=== PATIENT | male | born 1985 | race Caucasian/White ===

== ENCOUNTER 2022-10-25 13:41 | Emergency (ER) | payer MEDICARE, MEDICAID, SELFPAY ==
[2022-10-25 13:44] VITALS: BP 150/97; PULSE 112; RESP 18; TEMP 36.9; O2SAT 97; BMI 34.3
--- NOTE | 2022-10-25 13:56 | ED.GENADULT ---
HPI - General Adult General Chief complaint: Dental/Oral/Mouth Injury/Pain Stated complaint: Tooth pain Time Seen by Provider: 10/25/22 13:50 Source: patient Mode of arrival: ambulatory Limitations: no limitations History of Present Illness HPI narrative: 37-year-old male coming in today complaining of dental pain. Patient states that he has a history of dental problems. He noticed some increasing pain today both on the top and bottom teeth on the left side. Denies any systemic symptoms. Related Data Home Medications Medication Instructions Recorded Confirmed lorazepam 0.5 mg tablet (Ativan) 0.5 mg PO Q12H PRN 10/25/22 10/25/22 metformin 500 mg tablet 2,000 mg PO DAILY 10/25/22 10/25/22 Previous Rx's Medication Instructions Recorded amoxicillin 875 mg-potassium 1 tab PO BID #14 tabs 10/25/22 clavulanate 125 mg tablet Allergies Allergy/AdvReac Type Severity Reaction Status Date / Time No Known Drug Allergies Allergy Verified 10/25/22 13:48 Review of Systems Status of ROS: Reports: 10 or more systems reviewed and unremarkable except as noted in History and below Exam Narrative: Exam Narrative: Overweight, well-developed patient in no acute distress. Alert and oriented. Answers questions appropriately. Mood is slightly angry. Thoughts are goal oriented and rational. No tangential or magical thinking noted. Patient speaks in full sentences without needing to catch his breath. HEENT: Normocephalic atraumatic. Pupils are equally round reactive to light. Extraocular muscles are intact. Conjunctivae are moist without any icterus noted. Moist mucous membranes. Posterior pharynx is normal. Neck is soft without any lymphadenopathy or thyromegaly. No masses are appreciated. Patient has extraordinarily poor dentition. Teeth are rotting in multiple places, he has a very thick layer of plaque and debris covering most of his teeth, the gums are bright red and swollen across the entire top and bottom. There are no areas of fluctuance, I do not appreciate any possible abscesses. Very strong odor coming from his mouth. Skin: Well perfused without any obvious rashes. Const: Vital Signs, click to edit/add: Vital Signs - 24 hr 10/25/22 13:44 Temperature 98.5 F Pulse Rate [Right Pulse Oximeter] 112 H Respiratory Rate 18 Blood Pressure [Ri ght Upper Arm] 150/97 H Pulse Oximetry 97 Oxygen Delivery Me thod Room Air Course Course Hospital Course: Did ask the patient if he did any drugs and patient became extremely angry. I was able to discuss with him that I was asking so that I can better treat him and that I was not making any judgments, this did seem to calm him down. Vital Signs Vital signs: Initial Vital Signs Temperature 98.5 F 10/25/22 13:44 Temperature Source Temporal Artery Scan 10/25/22 13:44 Pulse Rate 112 H 10/25/22 13:44 Respiratory Rate 18 10/25/22 13:44 Blood Pressure 150/97 H 10/25/22 13:44 Blood Pressure Mean 114 10/25/22 13:44 Blood Pressure Position Sitting 10/25/22 13:44 Pulse Oximetry 97 10/25/22 13:44 Oxygen Delivery Method Room Air 10/25/22 13:44 Vital Signs Temperature 98.5 F 10/25/22 13:44 Pulse Rate 112 H 10/25/22 13:44 Respiratory Rate 18 10/25/22 13:44 Blood Pressure 150/97 H 10/25/22 13:44 Pulse Oximetry 97 10/25/22 13:44 Oxygen Delivery Method Room Air 10/25/22 13:44 Temperature 98.5 F 10/25/22 13:44 Pulse Rate 112 H 10/25/22 13:44 Respiratory Rate 18 10/25/22 13:44 Blood Pressure 150/97 H 10/25/22 13:44 Pulse Oximetry 97 10/25/22 13:44 Oxygen Delivery Method Room Air 10/25/22 13:44 Medical Decision Making MDM Narrative Medical decision making narrative: Poor dentition with probable gingival infection an obvious inflammation. Will treat with Augmentin and patient is encouraged to follow up with a dentist. Discharge Plan Discharge Clinical Impression: Disease of gingiva due to infection Patient Disposition: Home, Self-Care Condition: Stable Additional Instructions: Take all antibiotics as prescribed. Do recommend you follow-up with a dentist as soon as possible. Prescriptions: New amoxicillin-pot clavulanate 875-125 mg tablet 1 tab PO BID Qty: 14 0RF No Action lorazepam [Ativan] 0.5 mg tablet 0.5 mg PO Q12H PRN metformin 500 mg tablet 2,000 mg PO DAILY Stand Alone [facility]: [facility]
== END 2022-10-25 14:18 | disposition home or self-care (01) ==
LOC: ED 14:07
PROVIDERS: Emergency Provider Family Medicine
DX: K08.89 Other specified disorders of teeth and supporting structures (principal); K06.9 Disorder of gingiva and edentulous alveolar ridge, unspecified
CPT/HCPCS: 99283

== ENCOUNTER 2023-01-26 08:09 | Emergency (ER) | payer MEDICARE, MEDICAID, SELFPAY ==
[2023-01-26 08:15] VITALS: BP 158/118; PULSE 111; RESP 20; TEMP 36.7; O2SAT 98; BMI 21.8
--- NOTE | 2023-01-26 08:49 | ED_ITS ---
HPI - Abdominal Pain General Time Seen by Provider: 08:50 Date Seen: 01/26/23 Chief Complaint: Constipation Stated Complaint: constipated Time Seen by Provider: 01/26/23 08:28 Source: patient Mode of arrival: ambulatory Limitations: no limitations History of Present Illness HPI narrative: Patient is a 37-year-old male for history of anxiety and diabetes presenting to emergency department for abdominal pain and constipation. Patient states symptoms started back in August and he had imaging done that time was told he has constipation. He was taking his laxatives and safety of occasional large bowel movement. He states symptoms were starting to improve he stopped taking them. About 1 month ago he states he started having symptoms of constipation abdominal pain again. States he start taking MiraLax and another medication post unsure if he could take them together so stopped taking the MiraLax. States his abdominal pain has been worsened and is mostly in the lower abdominal region. Patient states he has only had small bowel movements over the past month. Patient states the pain is making it difficult to eat. He is also complaining of intermittent testicular discomfort. He states it feels like a pressure sensation appears his testicles. There is no tenderness to the testicles he states. He will also have discomfort with ejaculation. Related Data Home Medications Medication Instructions Recorded Confirmed lorazepam 0.5 mg tablet (Ativan) 0.5 mg PO Q12H PRN 10/25/22 01/26/23 metformin 500 mg tablet 2,000 mg PO DAILY 10/25/22 01/26/23 glipizide 10 mg tablet, extended 20 mg PO DAILY 01/26/23 01/26/23 release 24 hr risperidone 0.5 mg tablet mg PO 01/26/23 Previous Rx's Medication Instructions Recorded docusate sodium 100 mg capsule 100 mg PO BID #20 caps 01/26/23 (Colace) polyethylene glycol 3350 17 17 g PO BID #119 grams 01/26/23 gram/dose oral powder (Miralax) sennosides 8.6 mg capsule (senna) 17.2 mg (2 x 8.6 mg) PO BID #40 01/26/23 caps Allergies Allergy/AdvReac Type Severity Reaction Status Date / Time cats Allergy Mild Uncoded 12/31/22 11:22 PFSH PFSH Social History Smoking Status: Former smoker Second hand tobacco smoke exposure: No How often do you have a drink containing alcohol: never AUDIT-C Alcohol total score: 0 Non-prescribed substance use: marijuana (any form) service: No Exam Narrative: Exam Narrative: Const: Well-nourished, Well-developed, in moderate distress Eyes: PERRL, no conjunctival injection, and symmetrical lids ENMT: Atraumatic external nose and ears. Moist mucous membranes. Neck: Symmetric, trachea midline, No thyromegaly. CVS: RRR, No murmurs or gallops. Peripheral pulses 2+ and equal in all extremities RESP: Unlabored respiratory effort. Clear to auscultation bilaterally. GI: Diffusely mildly tender abdomen, Nondistended, No rebound or guarding. MSK:Extremities w/o deformity, Normal Active ROM Skin: Warm, Dry. No rashes or lesions. Neuro: Normal Muscle tone, No focal neurological deficits. Psych: Awake, Alert, & Oriented x3. Anxious appearing. Const: Vital Signs, click to edit/add: Vital Signs - 24 hr 01/26/23 08:15 01/26/23 11:06 Temperature 98.1 F Pulse Rate [Pulse Oximeter] 111 H 86 Respiratory Rate 20 16 Blood Pressure [Ri ght Upper Arm] 158/118 H 130/80 Pulse Oximetry 98 96 Oxygen Delivery Me thod Room Air Course Vital Signs Vital signs: Initial Vital Signs Temperature 98.1 F 01/26/23 08:15 Temperature Source Temporal Artery Scan 01/26/23 08:15 Pulse Rate 111 H 01/26/23 08:15 Respiratory Rate 20 01/26/23 08:15 Blood Pressure 158/118 H 01/26/23 08:15 Blood Pressure Mean 131 H 01/26/23 08:15 Blood Pressure Position Sitting 01/26/23 08:15 Pulse Oximetry 98 01/26/23 08:15 Oxygen Delivery Method Room Air 01/26/23 08:15 Vital Signs Temperature 98.1 F 01/26/23 08:15 Pulse Rate 111 H 01/26/23 08:15 Respiratory Rate 20 01/26/23 08:15 Blood Pressure 158/118 H 01/26/23 08:15 Pulse Oximetry 98 01/26/23 08:15 Oxygen Delivery Method Room Air 01/26/23 08:15 Temperature 98.1 F 01/26/23 08:15 Pulse Rate 86 01/26/23 11:06 Respiratory Rate 16 01/26/23 11:06 Blood Pressure 130/80 01/26/23 11:06 Pulse Oximetry 96 01/26/23 11:06 Oxygen Delivery Method Room Air 01/26/23 08:15 MDM - Abdominal Pain MDM Narrative Medical decision making narrative: Patient is a 37-year-old male with history of diabetes presenting to emergency department for abdominal pain and constipation. He has been having issues with constipation for several months now. He has been intermittently using stool softeners. Says he has only had a small bowel movement 3 days ago otherwise states he only has intermittent small bowel movements over the past month. States this caused him severe pain. Patient states he has been to several doctors and they will dismiss him and did not do any workup for him. Somewhat pains and would do CT scan of the abdomen and pelvis with IV contrast, CBC, CMP, urinalysis, lipase. I asked the patient what is in the medication for pain and he responded he did not know if he wants anything. Differential include small- bowel obstruction, constipation, appendicitis, diverticulitis, urinary tract infection. Patient's lab work returns showing no concerning abnormalities. His blood sugar is elevated and appears poorly controlled. Urinalysis shows no signs of UTI. Patient's CT scan showed signs of possible acute cystitis. mL urinalysis shows no signs of UTI in the setting not treat for it. CT also showed mild stool impaction with moderate stool burden. I was able to do a rectal disimpaction. During this the patient was unable lay on his right side because the IV in his hand hurts too much. Was unable to move any of the stool but was able to break it up thoroughly. We then gave the patient a enema. Patient was able have a bowel movement. The patient describes it as a small bowel movement but I would describe it is a large bowel movement. Part of his issues with constipation could be 2 to his poor diabetes management causing some gastric ileus. There is no signs of bowel obstruction on the CT scan. After his bowel movement I did give the patient a thorough bowel regimen. Informed to take the regiment as directed and follow-up with primary care provider. He was discharged home. Medical Records Attestation: I reviewed the patient's medical records. Lab Data Attestation: I reviewed the patient's lab results. Labs: Lab Results 01/26/23 01/26/23 Range/Units 09:10 11:30 WBC 11.40 H (4.50-11.00) K/uL RBC 6.10 H (4.30-5.90) m/uL Hgb 17.0 (13.5-17.5) gm/dL Hct 48.2 (37.0-53.0) % MCV 79 L (80-100) fL MCH 28 (26-34) pg MCHC 35 (32-36) gm/dL RDW Coeff of [place] 12.7 (11.5-15.5) % Plt Count 306 (140-440) K/uL Neut % (Auto) 58.9 (42.0-72.0) % Lymph % (Auto) 30.9 (20-44) % [place] % (Auto) 7.4 (0.0-11.0) % Eos % (Auto) 2.0 (0.0-7.0) % Baso % (Auto) 0.4 (0.0-3.0) % Neut # (Auto) 6.70 (1.7-7.0) K/uL Lymph # (Auto) 3.50 H (0.90-2.90) K/uL [place] # (Auto) 0.80 (0.00-0.90) K/UL Eos # (Auto) 0.20 (0.00-0.50) K/uL Baso # (Auto) 0.00 (0.00-0.30) K/uL Abs Immat Gran (auto) 0.00 (0.00-0.30) K/uL Imm/Tot Granulo (auto) 0.4 % Sodium 135 (135-149) mmol/L Potassium 4.0 (3.6-5.1) mmol/L Chloride 101 (96-114) mmol/L Carbon Dioxide 22 (20-32) mmol/L BUN 18 (5-24) mg/dL Creatinine 0.8 (0.5-1.5) mg/dL Estimated Creat Clear 136.55 Estimated GFR 116 ml/min Glucose 258 H (60-115) mg/dL Calcium 9.3 (8.4-10.6) mg/dL Total Bilirubin 0.7 (0.1-1.5) mg/dL AST 21 (12-35) U/L ALT 38 (4-50) U/L Alkaline Phosphatase 114 (40-150) U/L Total Protein 8.0 (6.0-8.3) g/dL Albumin 4.6 (3.3-5.0) g/dL Lipase 395 H (23-300) U/L Urine Color Yellow (Yellow) Urine Appearance Clear (Clear) Urine pH 5.0 (5.0-8.5) Ur Specific [place] <= 1.005 (1.000-1.030) Urine Protein Negative (Negative) Urine Glucose (UA) Trace A (Negative) Urine Ketones Negative (Negative) Urine Blood Negative (Negative) Urine Nitrite Negative (Negative) Urine Bilirubin Negative (Negative) Urine Urobilinogen 0.2 (0.2-1.0) Ur Leukocyte Esterase Negative (Negative) Urine RBC 0-2 (0-2) Urine WBC 0-2 (0-5) Ur Squamous Epith Cells None (None-Few) Urine Bacteria None (None) Discharge Plan Discharge Clinical Impression: Constipation Qualifiers: Constipation type: unspecified constipation type Qualified Code(s): K59.00 - Constipation, unspecified Patient Disposition: Home, Self-Care Condition: Stable Instructions: Constipation (DC) Additional Instructions: Follow-up with the primary care provider. Take Tylenol and ibuprofen for pain. Take all of your constipation medications as directed. Prescriptions: New docusate sodium [Colace] 100 mg capsule 100 mg PO BID Qty: 20 0RF senna 8.6 mg capsule 17.2 mg PO BID Qty: 40 0RF polyethylene glycol 3350 [Miralax] 17 gram/dose powder 17 g PO BID Qty: 119 0RF No Action lorazepam [Ativan] 0.5 mg tablet 0.5 mg PO Q12H PRN metformin 500 mg tablet 2,000 mg PO DAILY glipizide 10 mg tablet extended release 24hr 20 mg PO DAILY risperidone 0.5 mg tablet PO Follow Up/Referrals: Provider,Not a Local [Primary Care Provider] - Stand Alone [facility]: [facility]
--- NOTE | 2023-01-26 08:49 | CRLHL7_ITS ---
For Patients: As a result of the Century Cures Act, medical imaging exams and procedure reports are released immediately into your electronic medical record. You may view this report before your referring provider. If you have questions, please contact your health care provider. Indication: Abdominal pain, radiating to low back pain for 6 months Technique: Volumetric multidetector CT images of the abdomen and pelvis were obtained after the administration of intravenous contrast. 132 cc Isovue 370 low osmolar intravenous contrast Comparison: None available. Findings: The lung bases are clear. The liver is enlarged with marked hepatomegaly and hepatic steatosis. The portal vein is patent. The gallbladder is unremarkable without evidence of radiopaque calculus. There is no significant common biliary ductal dilatation or abrupt cut off. There are calcified granulomas within the spleen. Otherwise the spleen is normal in attenuation. There is mild thickening of the gastric antrum and gastric rugal folds. The pancreas is normal in enhancement without significant atrophy. The adrenal glands are unremarkable. The kidneys demonstrate preserved corticomedullary differentiation without evidence of obstructive uropathy. There is moderate to severe stool seen within the rectal vault consistent with likely fecal impaction. There is moderate stool seen within the proximal colon. There is no significant pericolonic inflammatory change. The small bowel is unremarkable. The appendix is unremarkable. There is no significant mesenteric, retroperitoneal, or pelvic sidewall lymph nodes. The aorta is nonaneurysmal. There is no significant atherosclerotic disease appreciated. There is demonstration of a markedly thickened bladder which may represent bladder nondistention versus sequela of cystitis change. There is no free fluid or free air. The anterior abdominal wall is intact without significant hernias. The lumbar vertebral body heights are grossly maintained with minimal endplate Schmorl`s defects. There is no significant spondylolisthesis or displaced fracture. Impression: Demonstration of a markedly thickened bladder which may represent sequela of nondistention versus cystitis change. Moderate stool seen within the rectal vault likely representing mild fecal impaction. Otherwise moderate stool seen within the proximal colon with otherwise no evidence of colonic inflammatory change. Please note that all CT scans at this facility use dose modulation, iterative reconstruction, and/or weight-based dosing when appropriate to reduce radiation dose to as low as reasonably achievable. Dictated by Art Skaggs MD @ 01/26/2023 10:41:20 AM (Electronically Signed)
[2023-01-26 09:31] LABS: Basophils Percent Auto 0.4 % (0.0-3.0); Hematocrit 48.2 % (37.0-53.0); Immature Granulocytes Pct Auto 0.4 %; Lymphocytes Percent Auto 30.9 % (20-44); Mean Corpuscular HGB Conc 35 gm/dL (32-36); Mean Corpuscular Hemoglobin 28 pg (26-34); Mean Corpuscular Volume 79 fL (80-100); Monocytes Percent Auto 7.4 % (0.0-11.0); Neutrophils Percent Auto 58.9 % (42.0-72.0); Platelet Count* 306 K/uL (140-440); RDW Coefficient of Variation % 12.7 % (11.5-15.5)
[2023-01-26 09:42] LABS: Chloride* 101 mmol/L (96-114)
[2023-01-26 09:43] LABS: Albumin* 4.6 g/dL (3.3-5.0); Sodium* 135 mmol/L (135-149)
[2023-01-26 09:45] LABS: Bilirubin Total* 0.7 mg/dL (0.1-1.5); Creatinine* 0.8 mg/dL (0.5-1.5); Est. Creatinine Clearance* 136.55; Estimated Glomerular Filt Rate 116 ml/min
[2023-01-26 09:46] LABS: Alanine Aminotransferase* 38 U/L (4-50); Alkaline Phosphatase* 114 U/L (40-150); Aspartate Amino Transferase* 21 U/L (12-35); Blood Urea Nitrogen* 18 mg/dL (5-24); Calcium* 9.3 mg/dL (8.4-10.6); Carbon Dioxide* 22 mmol/L (20-32); Glucose* 258 mg/dL (60-115); Lipase* 395 U/L (23-300)
[2023-01-26 09:53] LABS: Slide Review Reflex No
[2023-01-26 11:06] VITALS: BP 130/80; PULSE 86; RESP 16; O2SAT 96
--- NOTE | 2023-01-26 11:29 | ED.NURSE ---
Patient reported pain in his hand at the IV site. Stated he wanted it removed. Nursing pulled the IV per patient request.
[2023-01-26] MEDS: DOCUSATE SODIUM/BENZOCAINE 5 ML ENEMA PR (11:41)
[2023-01-26 12:00] LABS: Appearance Urine Clear (Clear); Bilirubin Urine Negative (Negative); Blood Urine Negative (Negative); Color Urine Yellow (Yellow); Glucose Urine Trace (Negative); Ketones Urine Negative (Negative); Leukocyte Esterase Urine Negative (Negative); Nitrite Urine Negative (Negative); Protein Urine Negative (Negative); Specific Gravity Urine <= 1.005 (1.000-1.030); Urobilinogen Urine 0.2 (0.2-1.0)
[2023-01-26 12:11] LABS: RBC Urine 0-2 (0-2); WBC Urine 0-2 (0-5)
--- NOTE | 2023-01-26 12:20 | PC.NURSE ---
Patient put on his call light. Had a large BM, formed in the commode. Patient reporting cramping, reassured patient about this after having an enema. Patient became anxious and wanting to leave when talking about timeframe for medication to work. Dr. Ashford came in room and discussed plan for discharge with patient.
== END 2023-01-26 12:47 | disposition home or self-care (01) ==
PROVIDERS: Emergency Provider Student in an Organized Health Care Education/Training Program
DX: K59.00 Constipation, unspecified (principal)
CPT/HCPCS: 36415; 74177; 80053; 81001; 83690; 85025; 99283; 99284; A9270; Q9967

== ENCOUNTER 2023-04-13 11:03 | Emergency (ER) | payer MEDICARE, MEDICAID, SELFPAY ==
[2023-04-13 11:15] VITALS: BP 152/107; PULSE 105; RESP 18; TEMP 36.7; O2SAT 97
--- NOTE | 2023-04-13 11:54 | PC.NURSE ---
[facility]
== END 2023-04-13 11:52 | disposition left against medical advice (07) ==
PROVIDERS: Emergency Provider Emergency Medicine
DX: Z53.21 Procedure and treatment not carried out due to patient leaving prior to being seen by health care provider (principal)

== ENCOUNTER 2024-05-09 11:41 | Emergency (ER) | payer MEDICARE, MEDICAID, SELFPAY ==
[2024-05-09 11:45] VITALS: BP 166/113; PULSE 140; RESP 18; TEMP 37.6; O2SAT 95; BMI 43.4
--- NOTE | 2024-05-09 11:56 | ED_ITS ---
HPI - General Adult General Date Seen: 05/09/24 Chief complaint: Skin/Abscess/Foreign Body Stated complaint: Painful cyst on back Time Seen by Provider: 05/09/24 11:48 Source: patient, RN notes reviewed and old records reviewed Mode of arrival: ambulatory Limitations: no limitations History of Present Illness HPI narrative: patient is a 39-year-old male who presents primarily for evaluation of a boil on his right shoulder blade area which is been getting worse and more painful over the past few days. He has not documented a fever but does feel that he has kind of felt hot today. . He has felt a little shaky and just off over the past day as well. He does note he has fairly significant anxiety, and also tells me that he has been very depressed this year and therefore has been off of all of his medications including those for diabetes. He has an appointment in a couple of days to get back on to his diabetes medicines as he has been feeling better from the standpoint of his depression. Related Data Home Medications ?Medication ?Instructions ?Recorded ?Confirmed lorazepam 0.5 mg tablet (Ativan) 0.5 mg PO Q12H PRN 10/25/22 07/17/23 metformin 500 mg tablet 2,000 mg PO DAILY 10/25/22 07/17/23 glipizide 10 mg tablet, extended 20 mg PO DAILY 01/26/23 07/17/23 release 24 hr aripiprazole 2 mg tablet 2 mg PO DAILY 07/17/23 07/17/23 clonidine HCl 0.1 mg 0.1 mg PO 07/17/23 07/17/23 tablet,extended release,12 hr escitalopram oxalate 10 mg tablet 10 mg PO DAILY 05/09/24 05/09/24 gabapentin 100 mg capsule 100 mg PO 3XD 05/09/24 05/09/24 gabapentin 300 mg capsule 300 mg PO 3XD 05/09/24 05/09/24 quetiapine 25 mg tablet 12.5 - 25 mg PO QPM 05/09/24 05/09/24 venlafaxine 75 mg capsule,extended 75 mg PO 3XD 05/09/24 05/09/24 release 24 hr Previous Rx's ?Medication ?Instructions ?Recorded docusate sodium 100 mg capsule 100 mg PO BID #20 caps 01/26/23 (Colace) polyethylene glycol 3350 17 17 g PO BID #119 grams 01/26/23 gram/dose oral powder (Miralax) sennosides 8.6 mg capsule (senna) 17.2 mg (2 x 8.6 mg) PO BID #40 01/26/23 caps metformin 1,000 mg tablet 1,000 mg PO BID #60 tabs 05/09/24 Allergies Allergy/AdvReac Type Severity Reaction Status Date / Time cats Allergy Mild Uncoded 07/17/23 11:03 Review of Systems Status of ROS: Reports: 6 or more systems reviewed and unremarkable except as noted in History and below PFSH FORMERLY [facility], [facility] Social History Smoking Status: Former smoker Second hand tobacco smoke exposure: No How often do you have a drink containing alcohol: never AUDIT-C Alcohol total score: 0 Non-prescribed substance use: marijuana (any form) service: No Exam Narrative: Exam Narrative: Vital signs as noted above. In general, an alert, Nontoxic male. Head: Normocephalic, atraumatic. Eyes: Pupils are equal reactive. Extraocular movements are full. Conjunctivae are normal. ENT: Mucous membranes are moist. Throat is normal. Neck: Supple without lymphadenopathy. Heart: Tachycardic and regular without murmur. Lungs: Clear bilaterally. No increased work of breathing, crackles or wheezes. Back: Over the right shoulder blade he has an area of erythema which is approximately 10 cm in diameter. There is an approximately 4 cm area of induration with overlying black eschar. Extremities: Well perfused. No edema. No calf tenderness. Pulses intact. Neurologic: Patient is alert and oriented to person and place. Speech is fluent. Face is symmetric. Moves all extremities equally. Affect: Normal. Skin: Warm and dry. Well perfused. Const: Vital Signs, click to edit/add: Vital Signs - 24 hr 05/09/24 11:45 05/09/24 12:35 05/09/24 13:29 Temperature 99.7 F H Pulse Rate [Right Pulse Oximeter] 140 H 102 H 119 H Respiratory Rate 18 20 Blood Pressure [Ri ght Upper Arm] 166/113 H Pulse Oximetry 95 93 95 Oxygen Delivery Me thod Room Air Room Air Room Air Documenting provider has reviewed patient's vital signs: yes Course Course ED Course: discussed I and D with him, he agrees to proceed with that. With his tachycardia and the fact that he has been off his medications for quite some lilian e, I do think it is worthwhile to do some labs. Will place an IV, give a little bit of Ativan for anxiolysis for the procedure. Heart rate came down nicely after Ativan. Now 102. Labs pending. Procedure note: The area overlying the abscess was anesthetized using lidocaine with epinephrine. A 1/2 cm incision was made with a 10. Blade and purulent material was expressed. Loculations were broken up with a mosquito and that eschar was removed as well. He tolerated this well without immediate complication. Dressing applied. Labs are notable for a mildly elevated white blood cell count of 14.9, 73% neutrophils. CRP is elevated at 5.6, lactate is normal at 1.8 and pro callus also normal. His blood sugar is elevated at 512, not terribly unexpected given the absence of any diabetes treatment this year. He has a normal gap, he has a sodium of 126, corrected to 133 for hyperglycemia. I am going to restart his metformin since he is here, dose can be adjusted by primary care in a couple of days if needed. Bactrim prescribed for mild cellulitis surrounding this abscess. Reasons to return reviewed including fevers, chills, vomiting, or worsening swelling, pain redness etcetera. Vital Signs Vital signs: Initial Vital Signs Temperature 99.7 F H 05/09/24 11:45 Temperature Source Temporal Artery Scan 05/09/24 11:45 Pulse Rate 140 H 05/09/24 11:45 Respiratory Rate 18 05/09/24 11:45 Blood Pressure 166/113 H 05/09/24 11:45 Blood Pressure Mean 130 H 05/09/24 11:45 Blood Pressure Position Sitting 05/09/24 11:45 Pulse Oximetry 95 05/09/24 11:45 Oxygen Delivery Method Room Air 05/09/24 11:45 Vital Signs Temperature 99.7 F H 05/09/24 11:45 Pulse Rate 140 H 05/09/24 11:45 Respiratory Rate 18 05/09/24 11:45 Blood Pressure 166/113 H 05/09/24 11:45 Pulse Oximetry 95 05/09/24 11:45 Oxygen Delivery Method Room Air 05/09/24 11:45 Temperature 99.7 F H 05/09/24 11:45 Pulse Rate 119 H 05/09/24 13:29 Respiratory Rate 20 05/09/24 12:35 Blood Pressure 166/113 H 05/09/24 11:45 Pulse Oximetry 95 05/09/24 13:29 Oxygen Delivery Method Room Air 05/09/24 13:29 Medications Administered Medications: Discontinued Medications Generic Name Dose Route Start Last Admin Trade Name Ayo PRN Reason Stop Dose Admin Lorazepam 1 mg 05/09/24 11:55 05/09/24 12:33 Lorazepam 2 Mg/Ml Inj IVP 05/09/24 11:56 1 mg ONCE ONE Administration Medical Decision Making Lab Data Labs: Lab Results 05/09/24 Range/Units 12:30 WBC 14.85 H (4.50-11.00) K/uL RBC 5.66 (4.30-5.90) m/uL Hgb 16.1 (13.5-17.5) gm/dL Hct 45.1 (37.0-53.0) % MCV 80 (80-100) fL MCH 28 (26-34) pg MCHC 36 (32-36) gm/dL RDW Coeff of Glen 12.6 (11.5-15.5) % Plt Count 270 (140-440) K/uL Neut % (Auto) 72.8 H (42.0-72.0) % Lymph % (Auto) 16.2 L (20-44) % Owen % (Auto) 9.5 (0.0-11.0) % Eos % (Auto) 0.8 (0.0-7.0) % Baso % (Auto) 0.3 (0.0-3.0) % Neut # (Auto) 10.80 H (1.7-7.0) K/uL Lymph # (Auto) 2.40 (0.90-2.90) K/uL Owen # (Auto) 1.40 H (0.00-0.90) K/UL Eos # (Auto) 0.10 (0.00-0.50) K/uL Baso # (Auto) 0.00 (0.00-0.30) K/uL Abs Immat Gran (auto) 0.10 (0.00-0.30) K/uL Imm/Tot Granulo (auto) 0.4 % Sodium 126 L (135-149) mmol/L Potassium 4.7 (3.6-5.1) mmol/L Chloride 90 L (96-114) mmol/L Carbon Dioxide 25 (20-32) mmol/L Anion Gap 11 (7-15) mEq/L BUN 20 (5-24) mg/dL Creatinine 0.8 (0.5-1.5) mg/dL Estimated Creat Clear 134.72 Estimated GFR 115 ml/min Glucose 512 H* (60-115) mg/dL Lactate 1.8 (0.5-1.9) mmol/L Calcium 9.2 (8.4-10.6) mg/dL C-Reactive Protein 5.4 H (0.5-1.0) mg/dL Procalcitonin 0.24 (<0.50) ng/mL Discharge Plan Discharge Clinical Impression: Abscess of skin or subcutaneous tissue, Cellulitis, Type 2 diabetes mellitus not at goal Patient Disposition: Home, Self-Care Condition: Improved Instructions: Abscess Incision and Drainage (DC) Additional Instructions: Antibiotic as prescribed. You should have gradual improvement over the next several days to week. If you have worsening redness swelling pain fevers or other new symptoms, return any time for re-evaluation. Please follow-up with your regular clinic in 2-3 days if you not failure making any improvement. Dressing should be changed once or twice a day, please remove the dressing and wash this area out are at least daily in the shower or tub. Your blood sugar today is 512, significantly elevated likely due to a combination of the skin infection as well as being off of your medications. I am going to restart you on metformin, please see your doctor as planned in a couple of days so that other medications can be represcribed as well and any dosage adjustments that might be needed can be made. Prescriptions: New metformin 1,000 mg tablet 1,000 mg PO BID Qty: 60 2RF No Action clonidine HCl 0.1 mg tablet extended release 12 hr 0.1 mg PO aripiprazole 2 mg tablet 2 mg PO DAILY quetiapine 25 mg tablet 12.5 - 25 mg PO QPM venlafaxine 75 mg capsule,extended release 24hr 75 mg PO 3XD gabapentin 300 mg capsule 300 mg PO 3XD gabapentin 100 mg capsule 100 mg PO 3XD escitalopram oxalate 10 mg tablet 10 mg PO DAILY lorazepam [Ativan] 0.5 mg tablet 0.5 mg PO Q12H PRN metformin 500 mg tablet 2,000 mg PO DAILY glipizide 10 mg tablet extended release 24hr 20 mg PO DAILY docusate sodium [Colace] 100 mg capsule 100 mg PO BID Qty: 20 0RF senna 8.6 mg capsule 17.2 mg PO BID Qty: 40 0RF polyethylene glycol 3350 [Miralax] 17 gram/dose powder 17 g PO BID Qty: 119 0RF Follow Up/Referrals: Provider,Not a Local [Non-Staff] - Stand Alone Forms: [facility] Info Instructions
[2024-05-09] MEDS: LORazepam 2 MG/ML inj 1 MG IVP (12:33)
[2024-05-09 12:35] VITALS: PULSE 102; RESP 20; O2SAT 93
[2024-05-09 12:37] LABS: Lactate Sepsis w/Reflex* 1.8 mmol/L (0.5-1.9)
[2024-05-09 12:40] LABS: Basophils Percent Auto 0.3 % (0.0-3.0); Eosinophils Percent Auto 0.8 % (0.0-7.0); Hematocrit 45.1 % (37.0-53.0); Hemoglobin* 16.1 gm/dL (13.5-17.5); Immature Granulocytes Pct Auto 0.4 %; Lymphocytes Percent Auto 16.2 % (20-44); Mean Corpuscular HGB Conc 36 gm/dL (32-36); Mean Corpuscular Hemoglobin 28 pg (26-34); Mean Corpuscular Volume 80 fL (80-100); Monocytes Percent Auto 9.5 % (0.0-11.0); Neutrophils Percent Auto 72.8 % (42.0-72.0); Platelet Count* 270 K/uL (140-440); RDW Coefficient of Variation % 12.6 % (11.5-15.5); Red Blood Count 5.66 m/uL (4.30-5.90); White Blood Count* 14.85 K/uL (4.50-11.00)
[2024-05-09 12:45] LABS: Slide Review Reflex No
--- OUTSIDE RECORDS SUMMARY | 2024-05-09 12:45 | XMS_ITS | Clinical Summary ---
Author Organization [employer] [facility] Address [place], [place] [address] Care Team Providers Care Food Service Associate Name Role Phone Rita Augustin MD Primary Care Provider [phone] Allergies Active Allergy Reactions Criticality Noted Date Comments Cat Dander Other - Describe In Comment Field Low 04/19/2020 Leslie Pollen-Short Ragweed Other - Descri be In Comment Field Low 04/19/2020 Medications Medication Sig Dispensed Refills Start Date End Date Status atorvastatin (LIPITOR) 80 mg tablet TAKE ONE TABLET BY MOUTH ONE TIME DAILY* Active metFORMIN (GLUCOPHAGE XR) 500 mg Extended-Release tablet TAKE TWO TABLETS BY MOUTH TWICE DAILY WITH MEALS* Active polyethylene glycoL (MIRALAX) 17 gram/scoop powder mix 17 grams (1 capful) in 8 ounces liquid and drink twice daily for 3 days.* Active glipiZIDE extended-release (GLUCOTROL XL) 10 mg Extended-Release tabletIndications :Type 2 diabetes mellitus with hyperglycemia, without long-term current use of insulin (HC) Take 2 Tablets (20 mg) by mouth once daily before a meal. 200 Tablet 3 3 Active Senna 8.6 mg tabletIndications :Chronic constipation Take 1 Tablet (8.6 mg) by mouth two times daily. 200 Tablet 3 3 Active Trulicity 1.5 mg/0.5 mL subcutaneous penIndications:Ty pe 2 diabetes mellitus with hyperglycemia, without long-term current use of insulin (HC) Inject 1.5 mg subcutaneous once weekly. 6 mL 3 3 Active magnesium citrate (CITRATE OF MAG) solutionIndicatio ns:Chronic constipation Take 300 mL by mouth once daily if needed for Constipation. 590 mL 3 Active empagliflozin (JARDIANCE) 10 mg tabletIndications :Type 2 diabetes mellitus with hyperglycemia, without long-term current use of insulin (HC) Take 1 Tablet (10 mg) by mouth once daily. 100 Tablet 3 Active emtricitabine-ten ofovir, 200-300 mg, (Truvada) tabletIndications :High risk sexual behavior, unspecified type Take 1 Tablet by mouth once daily. 90 Tablet 3 Active glycerin, adult, suppositoryIndica tions:Constipatio n, acute Insert 1 Suppository rectally once daily if needed for Constipation. 25 Suppository 3 Active sennosides-docusa te (SENOKOT S) (8.6-50 mg) tabletIndications :Constipation, acute Take 1 Tablet by mouth once daily if needed for Constipation. 90 Tablet 3 3 Active clonazePAM (KLONOPIN) 1 mg tabletIndications :JERMAINE (generalized anxiety disorder) Take 1 Tablet (1 mg) by mouth once daily if needed for Anxiety. 15 Tablet 4 Active cloNIDine HCL (CATAPRES) 0.1 mg tabletIndications :JERMAINE (generalized anxiety disorder) Take 1 Tablet (0.1 mg) by mouth 2 times daily if needed (anxiety). 60 Tablet 5 4 Active gabapentin (NEURONTIN) 300 mg capsuleIndication s:JERMAINE (generalized anxiety disorder) Take 1 Capsule (300 mg) by mouth three times daily. 90 Capsule 5 4 Active QUEtiapine (SEROQUEL) 100 mg tabletIndications :Severe episode of recurrent major depressive disorder, without psychotic features (HC) Take 1 Tablet (100 mg) by mouth at bedtime. 30 Tablet 5 4 Active venlafaxine (Effexor XR) 150 mg Extended-Release capsuleIndication s:JERMAINE (generalized anxiety disorder) Take 1 Capsule (150 mg) by mouth once daily with a meal. 30 Capsule 5 4 Active venlafaxine (Effexor XR) 75 mg cp24 Extended-Release capsuleIndication s:JERMAINE (generalized anxiety disorder),Severe episode of recurrent major depressive disorder, without psychotic features (HC) Take 1 Capsule (75 mg) by mouth once daily with a meal. 30 Capsule 5 4 Active traZODone (DESYREL) 50 mg tabletIndications :Insomnia, unspecified type Take 1-2 Tablets (50-100 mg) by mouth at bedtime if needed for Sleep. 60 Tablet 2 4 Active clonazePAM (KLONOPIN) 1 mg tabletIndications :Anxiety Take 1 Tablet (1 mg) by mouth once daily if needed for Anxiety. 15 Tablet 4 05/03/20 Discontinu ed(Reorder (E-cancel not sent)) cloNIDine HCL (CATAPRES) 0.1 mg tabletIndications :JERMAINE (generalized anxiety disorder) Take 1 Tablet (0.1 mg) by mouth 2 times daily if needed (anxiety). 60 Tablet 5 4 05/03/20 Discontinu ed(Reorder (E-cancel not sent)) gabapentin (NEURONTIN) 300 mg capsuleIndication s:JERMAINE (generalized anxiety disorder) Take 1 Capsule (300 mg) by mouth three times daily. 90 Capsule 5 4 05/03/20 Discontinu ed(Reorder (E-cancel not sent)) QUEtiapine (SEROQUEL) 25 mg tabletIndications :Severe episode of recurrent major depressive disorder, without psychotic features (HC) Take 0.5-1 Tablets (12.5-25 mg) by mouth at bedtime. 30 Tablet 5 4 05/03/20 Discontinu ed(Reorder (E-cancel not sent)) venlafaxine (Effexor XR) 150 mg Extended-Release capsuleIndication s:JERMAINE (generalized anxiety disorder) Take 1 Capsule (150 mg) by mouth once daily with a meal. 30 Capsule 5 4 05/03/20 Discontinu ed(Reorder (E-cancel not sent)) venlafaxine (Effexor XR) 75 mg cp24 Extended-Release capsuleIndication s:JERMAINE (generalized anxiety disorder),Severe episode of recurrent major depressive disorder, without psychotic features (HC) Take 1 Capsule (75 mg) by mouth once daily with a meal. 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 Encounters Date Type Department Care Team Description 05/03/2024 8:15 AM CDT Telemedicine [facility] [address] [address] Ambar Gonzales NP Follow Up (Sleep Concerns); Medication Management; Telehealth 02/14/2024 8:45 AM CDT Telemedicine [facility] [address] [facility] [address] [place] [address] Ambar Gonzales NP Telehealth; Medication Management (Follow up) from Last 3 Months Immunizations Name Administration Dates Next Due DT (Age < 7 years) 03/20/1997 DTaP 03/02/1990, 6,1984,07/26,1984 HIB PRP-T (ActHIB,Hiberix) 05/16/1986 Hepatitis A (Adult) 03/21/2015,05/21/2005 Hepatitis A (Peds),Unspecified 01/15/2015 Hepatitis B (Peds) 03/19/1995,04/07/1994, 994 Hepatitis B, Unspecified 01/15/2015 Influenza A (H1N1), Inactivated 07/29/2009 Influenza Virus, Unspecified 05/21/2017,03/21/20 15,06/11/2009 Influenza, IIV3 (Age >=3 years) 05/21/2011,05/21 Influenza, IIV4 07/18/2020, 9,05/20/2018,05/21 Influenza, IIV4 (=>6mos) MDV 03/21/2015 Influenza, IIV4 (Age 6-35 Mos) 05/09/2013 MMR 03/20/1997,06/16/1985 Meningococcal Vaccine (Menactra) 03/28/2015 Oral Polio Vaccine 03/02/1990, 6,1984,05/24 Pneumococcal Poly,23-Valent (Pneumovax) 04/04/2020 Td (Age >=7 Years) 03/20/1997 Tdap 10/27/2022,03/01/2009 Social History Tobacco Use Types Packs/Day Years Used Date Smoking Tobacco: Former Cigarettes 3 11 2 003 - 2014 Smokeless Tobacco: Never Tobacco Cessation:Counseling Given: Not Answered Alcohol Use Standard Drinks/Week Comments Not Currently 0 (1 standard drink = 0.6 oz pur e alcohol) PHQ-2 Answer Date Recorded PHQ-2 TOTAL SCORE 6 11/19/2023 Social Connections Answer Date Recorded Frequency of Communication with Friends and Fami ly Not on file 02/15/2023 Sex and Gender Information Value Date Recorded Sex Assigned at Not on file Gender Identity Not on file Sexual Orientation Not on file Obstetrics History Last Filed Vital Signs Vital Sign Reading Time Taken Comments Blood Pressure 145/87 02/15/2023 2:18 PM CDT Pulse 126 02/15/2023 2:18 PM CDT Temperature - - Respiratory Rate - - Oxygen Saturation 99% 02/15/2023 2:15 PM CDT Inhaled Oxygen Concentration - - Weight 130.6 kg (288 lb) 02/15/2023 2:15 PM CDT Height 183.5 cm (6' 0.24) 02/15/2023 2:15 PM CD T Body Mass Index 38.8 02/15/2023 2:15 PM CDT Plan of Treatment Upcoming Encounters Date Type Department Care Team (Late st Contact Info) Description 05/11/2024 10:50 AM CDT Office Visit [facility] [address] [place] [address] Rita Augustin MD [address] [place] [address] 06/07/2024 11:15 AM GIS MANAGER Telemedicine [facility] [place] [address] [place] [address] Larisa Uriarte, [facility] [address] [place] [address] Health Maintenance Due Date Last Done Comments Hepatitis C screening for age 18-79 2002 BMI (ht and wt on same day) for age 18+ 02/16/2024 02/15/2023 COVID-19 vaccine series (2023- season) 2024 10/27/2022, 07/29/2021, 01/01/2021, Additional history exists Influenza for age 9-49 03/19/2024 , 05/11/2019, 05/20/2018, Additional history exists Depression screening for age 12+ 11/18/2024 11/19/2023, 09/02/2023, 09/02/2023, Additional history exists Lipids for age 35-44 02/16/2028 02/15/2023 Tetanus booster 10/27/2032 10/27/2022, 02/16, 03/20/1997 Pneumococcal series for age 6-64 Aged Out 04/04/2020 No longer eligible based on patient's age to complete this topic Tdap Completed 10/27/2022, 03/01/2009 HIV for age 15-65 Completed 02/15/2023 Procedures Procedure Name Priority Date/Time Associated Diagnosis Comments LC HIV-1/O/2, 4TH GENERATION Routine 02/15/2023 3:31 PM CDT High risk sexual behavior, unspecified type LIPID PANEL W REFLEX MEASURED LDL Routine 02/15/2023 3:31 PM CDT Hyperlipidemia, unspecified hyperlipidemia type from Last 3 Months or Most Recently Relevant to Health Maintenance Results * LC HIV-1/O/2, 4TH GENERATION (02/15/2023 3:31 PM CDT) HIV Scr 4th Gen Non Reactive Non Reactive 02/19/2023 12:06 AM CDT [facility] Comment: HIV Negative HIV-1/HIV-2 antibodies and HIV-1 p24 antigen were NOT detected. There is no laboratory evidence of HIV infection. Blood BLOOD SPECIMEN / Unknown Venipuncture / Unknown 02/15/2023 3:31 PM CDT 02/15/2023 3:32 PM CDT Narrative [facility] ([facility] - 02/19/2023 12:06 AM CDT Performed at: ??01 - [address] ??[id number] J[employer] Pouncing Machine Operator: Elder Brennan MD, Phone: ??[phone] Rita Augustin MD LABORATORY [facility] ([facility]) [facility] [address] * (ABNORMAL) LIPID PANEL W REFLEX MEASURED LDL (02/15/2023 3:31 PM CDT) CHOLESTEROL,TOTAL 235(H) 100 - 199 mg/dL 02/16/2023 4:49 PM CDT [facility] Comment: Cholesterol, Total Reference Ranges Desirable <200 mg/dL Borderline 200-239 mg/dL High >=240 mg/dL TRIGLYCERIDES 266(H) <150 mg/dL 02/16/2023 4:49 PM CDT [facility] HDL CHOLESTEROL 42 >40 mg/dL 4:49 PM CDT [facility] NON-HDL CHOLESTEROL 193(H) <145 mg/dl 02/16/2023 4:49 PM CDT [facility] CHOL/HDL RATIO 5.60(H) <4.50 02/16/2023 4:49 PM CDT [facility] LDL CHOLESTEROL 140(H) <=130 mg/dL 02/16/2023 4:49 PM CDT [facility] [employer] VLDL CHOLESTEROL 53(H) <=30 mg/dL 02/16/2023 4:49 PM CDT [facility] PROVIDER ORDERED STATUS RANDOM 02/16/2023 4:49 PM CDT [facility] Blood BLOOD SPECIMEN / Unknown Venipuncture / Unknown 02/15/2023 3:31 PM CDT 02/15/2023 3:32 PM CDT Rita Augustin MD CHEMISTR[facility] [address] [place] [address], from Last 3 Months or Most Recently Relevant to Health Maintenance Care Teams Food Service Associate Relationship Specialty Start Date End Date Rita Augustin MD [address] [place] [address] PCP - General Family Practice 11/19/23
[2024-05-09 12:54] LABS: Chloride* 90 mmol/L (96-114)
[2024-05-09 12:55] LABS: Potassium* 4.7 mmol/L (3.6-5.1); Sodium* 126 mmol/L (135-149)
[2024-05-09 12:57] LABS: Creatinine* 0.8 mg/dL (0.5-1.5); Est. Creatinine Clearance* 134.72; Estimated Glomerular Filt Rate 115 ml/min
[2024-05-09 12:58] LABS: Anion Gap 11 mEq/L (7-15); Blood Urea Nitrogen* 20 mg/dL (5-24); Calcium* 9.2 mg/dL (8.4-10.6); Carbon Dioxide* 25 mmol/L (20-32)
[2024-05-09 13:01] LABS: C Reactive Protein* 5.4 mg/dL (0.5-1.0)
[2024-05-09 13:09] LABS: Glucose* 512 mg/dL (60-115)
[2024-05-09 13:15] LABS: Procalcitonin* 0.24 ng/mL (<0.50)
[2024-05-09 13:29] VITALS: PULSE 119; O2SAT 95
== END 2024-05-09 13:33 | disposition home or self-care (01) ==
PROVIDERS: Emergency Provider Emergency Medicine; PCP Family Medicine
DX: L02.413 Cutaneous abscess of right upper limb (principal); L03.113 Cellulitis of right upper limb; E11.9 Type 2 diabetes mellitus without complications
CPT/HCPCS: 36415; 80048; 83605; 84145; 85025; 86140; 87070; 87186; 96374; 99284; J2060